=== PATIENT | female | born 1985 | race Caucasian/White ===

== ENCOUNTER 2023-08-12 19:40 | Emergency (ER) | payer BC ==
[2023-08-12] MEDS: Metoprolol Tartrate 50 MG Tab PO ONE (20:17)
[2023-08-12 20:25] LABS: BLOOD UREA NITROGEN,BUN 6 mg/dL (7-18); BUN/CREATININE RATIO 7.5 (9-20); CALCIUM 8.6 mg/dL (8.6-10.2); CARBON DIOXIDE,CO2 26 mmol/L (21-32); CHLORIDE,CL 105 mmol/L (100-110); CREATININE 0.8 mg/dL (0.55-1.02); ESTIMATED GFR 95 mL/min (>60); GLUCOSE RANDOM 114 mg/dL (80-116); POTASSIUM,K 3.6 mmol/L (3.5-5.3); SODIUM,NA 141 mmol/L (135-145)
[2023-08-12 20:31] LABS: A/G RATIO 0.8; ALANINE AMINOTRANSFERASE,ALT 53 U/L (12-36); ALBUMIN 3.2 g/dL (3.5-5.2); ALKALINE PHOSPHATASE 84 IU/L (56-112); ASPARTATE AMNIOTRANSFERASE,AST 31 IU/L (5-25); BILIRUBIN TOTAL 0.4 mg/dL (0.1-1.3); PROTEIN TOTAL,TP 7.3 g/dL (6.0-8.0)
[2023-08-12 20:41] LABS: TROPONIN I 10.4 pg/mL (4.0-60.3); TSH ULTRASENSITIVE 4.34 IU/mL (0.36-3.74)
[2023-08-12 20:51] LABS: BASOPHILS PERCENT AUTO 0.7 % (0.2-1.5); EOSINOPHILS ABSOLUTE AUTO 0.1 x10-3/uL (0.0-0.8); EOSINOPHILS PERCENT AUTO 1.4 % (0.6-8.1); HEMATOCRIT 38.4 % (34.2-48.2); HEMOGLOBIN 12.8 g/dL (11.4-15.5); LYMPHOCYTES ABSOLUTE AUTO 2.3 x10-3/uL (1.0-4.4); LYMPHOCYTES PERCENT AUTO 32.2 % (18.4-52.1); MEAN CORPUSCULAR HEMOGLOBIN 27.3 pg (23.9-33.9); MEAN CORPUSCULAR HGB CONC 33.2 g/dL (31.9-34.8); MEAN CORPUSCULAR VOLUME 82.3 fL (76.7-100.5); MEAN PLATELET VOLUME 9.2 fL (7.1-12.4); MONOCYTES ABSOLUTE AUTO 0.6 x10-3/uL (0.3-1.0); MONOCYTES PERCENT AUTO 8.8 % (4.4-15.7); NEUTROPHILS PERCENT AUTO 56.9 % (30.8-76.2); PLATELET COUNT,PLT 265 x10(3)uL (151-488); RED BLOOD CELL COUNT 4.67 x10(6)uL (3.60-5.20); RED CELL DISTRIBUTION WIDTH 13.2 % (12.3-16.5); WHITE BLOOD CELL COUNT,WBC 7.1 x10-3/uL (3.0-10.3)
== END 2023-08-12 21:30 | disposition home or self-care (01) ==
LOC: FB.ED 19:40
DX: R00.2 Palpitations (principal); K21.9 Gastro-esophageal reflux disease without esophagitis; E66.9 Obesity, unspecified; Z68.27 Body mass index [BMI] 27.0-27.9, adult; Z79.899 Other long term (current) drug therapy
CPT/HCPCS: 36415; 80053; 84443; 84484; 85025; 93005; 99285

== ENCOUNTER 2024-01-20 23:12 | Emergency (ER) | payer BC ==
[2024-01-20 23:42] LABS: BLOOD UREA NITROGEN,BUN 6 mg/dL (7-18); BUN/CREATININE RATIO 7.5 (9-20); CALCIUM 8.9 mg/dL (8.6-10.2); CARBON DIOXIDE,CO2 31 mmol/L (21-32); CHLORIDE,CL 105 mmol/L (100-110); CREATININE 0.8 mg/dL (0.55-1.02); EST CRCL DRUG DOSING (CG) 87.51 mL/min; ESTIMATED GFR 95 mL/min (>60); GLUCOSE RANDOM 106 mg/dL (80-116); SODIUM,NA 141 mmol/L (135-145)
== END 2024-01-21 00:08 | disposition home or self-care (01) ==
LOC: FB.ED 23:12
DX: R00.2 Palpitations (principal); E66.9 Obesity, unspecified; Z79.899 Other long term (current) drug therapy
CPT/HCPCS: 36415; 80048; 93005; 93010; 99283; 99285

== ENCOUNTER 2024-02-11 07:53 | Day surgery (SDC) | payer BC ==
[2024-02-11] MEDS ORDERED: Ketamine 500 mg/10 ML MDV IV ONE (07:54)
[2024-02-11] MEDS ORDERED: Lidocaine 2% 100 MG/5 ML Syringe IVPUSH ONE (07:54)
[2024-02-11] MEDS ORDERED: Propofol 200 MG/20 ML SDV IV ONE (07:54)
[2024-02-11] MEDS ORDERED: Midazolam 1 MG/ML 2 ML SDV IV ONE (07:54)
[2024-02-11] MEDS ORDERED: Sodium Chloride 0.9% 10 ML Syringe FLUSH PRN (08:00)
[2024-02-11] MEDS: Lactated Ringers 1,000 ML IV SCH (08:57)
[2024-02-11] MEDS: Simethicone Drops 40 MG/0.6 ML 30 ML Bottle ONE (09:31)
== END 2024-02-11 11:10 | disposition home or self-care (01) ==
LOC: FB.SDS 07:53
PROVIDERS: ATTEND Surgery
DX: K29.50 Unspecified chronic gastritis without bleeding (principal); K22.70 Barrett's esophagus without dysplasia; K21.9 Gastro-esophageal reflux disease without esophagitis; Z79.899 Other long term (current) drug therapy
CPT/HCPCS: 00731; 88305; 88342; A9270-GY; J2250; J2704; J3490; J7120

== ENCOUNTER 2025-03-30 08:47 | Day surgery (SDC) | payer BC ==
[~2025-03-30 08:47] MED LIST: Sodium Chloride 0.9% 10 ML Syringe FLUSH PRN
[2025-03-30] MEDS ORDERED: Midazolam 1 MG/ML 2 ML SDV IV ONE (08:48)
[2025-03-30] MEDS ORDERED: Propofol 200 MG/20 ML SDV IV ONE (08:48)
[2025-03-30] MEDS ORDERED: Ketamine 500 mg/10 ML MDV IV ONE (08:48)
[2025-03-30] MEDS: Lactated Ringers 1,000 ML IV SCH (09:06)
== END 2025-03-30 11:30 | disposition still patient (30) ==
LOC: FB.SDS 08:47
PROVIDERS: ATTEND Surgery
DX: K31.7 Polyp of stomach and duodenum (principal); K31.89 Other diseases of stomach and duodenum; K20.90 Esophagitis, unspecified without bleeding; K29.70 Gastritis, unspecified, without bleeding; E66.9 Obesity, unspecified; Z68.42 Body mass index [BMI] 45.0-49.9, adult; Z79.899 Other long term (current) drug therapy
CPT/HCPCS: 00731; 88305; A9270-GY; J2003; J2250; J2704; J3490; J7120